=== PATIENT | female | born 1970 | race Caucasian/White ===

== ENCOUNTER 2018-05-18 09:59 | Emergency (ER) | payer MEDICARE, MEDICAID ==
[2018-05-18 11:03] VITALS: BP 128/69
--- NOTE | 2018-05-18 12:00 | UC ---
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 Manuscripts Archivist states several housemates have recently had similar symptoms. Denies fever, chills, ear pain, dysphagia, chest pain, shortness of breath, abdominal pain, nausea, vomiting, or diarrhea. - History of Current Complaint Chief Complaint: UCGeneralIllness Stated Complaint: SORE THROAT FEVER Time Seen by Provider: 05/18/18 11:35 Hx Obtained From: Patient Hx Last Menstrual Period: 05/15/2012 Pain Intensity: 5 - Allergy/Home Medications Allergies/Adverse Reactions: Allergies Allergy/AdvReac Type Severity Reaction Status Date / Time No Known Allergies Allergy Verified 05/18/18 11:03 PMH/Surg Hx/FS Hx/Imm Hx Endocrine History: Thyroid Disease Respiratory History: Asthma Neurological History: Seizures Psychological History: Anxiety, Other - Developmental delay - Surgical History Surgical History: Yes Surgery Procedure, Year, and Place: BREAST REDUCTION - Family History Known Family History: Positive: Non-Contributory - Social History Occupation: Disabled Lives: Shelter Alcohol Use: None Substance Use Type: None Smoking Status (MU): Never Smoked Tobacco - Immunization History Most Recent Tetanus Shot: UTD Review of Systems All Other Systems Reviewed And Are Negative: Yes Constitutional: Negative: Fever, Chills Skin: Negative: Rash Eyes: Negative: Drainage, Eye Redness ENT: Positive: Sore Throat, Nasal Discharge, Sinus Congestion. Negative: Ear Ache, Sinus Pain/Tenderness Respiratory: Positive: Cough. Negative: Shortness Of Breath Cardiovascular: Negative: Palpitations, Chest Pain Gastrointestinal: Negative: Abdominal Pain, Vomiting, Diarrhea, Nausea Genitourinary: Negative: Dysuria, Hematuria, Frequency, Urgency Musculoskeletal: Positive: Negative Neurological: Positive: Negative Is Patient Immunocompromised?: No Physical Exam - Summary Physical Exam Summary: GENERAL APPEARANCE: Well developed, well nourished, alert and cooperative, and appears to be in no acute distress. EYES: Conjunctiva clear. No drainage. Vision is grossly intact. EARS: External auditory canals and tympanic membranes clear, hearing grossly intact. NOSE: Mild nasal congestion. No nasal discharge. THROAT: Mild pharyngeal erythema with cobblestoning. No tonsilar inflammation, swelling, exudate, or lesions. Uvula midline. NECK: Neck supple, non-tender without lymphadenopathy. CARDIAC: Normal S1 and S2. No S3, S4 or murmurs. Rhythm is regular. There is no peripheral edema, cyanosis or pallor. Extremities are warm and well perfused. Capillary refill is less than 2 seconds. Peripheral pulses intact. LUNGS: Clear to auscultation without rales, rhonchi, wheezing or diminished breath sounds. Dry, non-productive cough. ABDOMEN: Positive bowel sounds. Soft, nondistended, nontender. No guarding or rebound. No masses or hepatosplenomegally. MUSKULOSKELETAL: ROM intact to all extremities. No joint erythema or tenderness. Normal muscular development. Normal gait. SKIN: Skin normal color, texture and turgor with no lesions or eruptions. 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 Manuscripts Archivist states several housemates have recently had similar symptoms. Denies fever, chills, ear pain, dysphagia, chest pain, shortness of breath, abdominal pain, nausea, vomiting, or diarrhea. Afebrile. Vital signs stable. Exam reveals an adult female in no acute distress with mild nasal congestion, mild pharyngeal erythema without tonsillar swelling or exudate, no cervical lymphadenopathy, clear bilateral breath sounds, dry nonproductive cough , and otherwise unremarkable exam. Recommending symptomatic treatment for a viral upper respiratory infection including Tessalon Perles 1 capsule every 8 hours as needed for cough. She is to follow-up with the primary care provider in one week if symptoms do not improve. Anticipatory guidance and warning symptoms are reviewed with farm or ranch animal caretaker. Verbalizes understanding and agrees with plan of care. - Differential Dx/Diagnosis Differential Diagnosis/HQI/PQRI: Bronchitis, Influenza, Pneumonia, Upper Respiratory Infection Provider Diagnosis: Viral URI with cough Discharge - Sign-Out/Discharge Documenting (check all that apply): Patient Departure All imaging exams completed and their final reports reviewed: No Studies - Discharge Plan Condition: Stable Disposition: HOME Prescriptions: Benzonatate CAP* [Tessalon 100 MG CAP*] 100 mg PO TID PRN #30 cap PRN Reason: Cough Patient Education Materials: Upper Respiratory Infection (ED) Referrals: Philippe Hart MD [Primary Care Provider] - 7 Days (If no improvement in symptoms. ) Additional Instructions: Your history and exam are consistent with a viral upper respiratory infection. Viral infections do not respond to antibiotics and are limited to the treatment of symptoms. Viral infections typically run their course in 7-10 days. Drink plenty of fluids to avoid dehydration especially if you are running any fever. Take over the counter acetaminophen (Tylenol) according to directions as needed for pain or fever. Use salt water gargles several times a day if you have a sore throat. Take Tessalon Perles 1 cap every 8 hours as needed for cough. Follow up with your primary care provider in 7 days if symptoms persist. Seek immediate medical attention in the emergency room if you have fever greater than 100.5 F despite taking acetaminophen or ibuprofen, have chest pain , difficulty breathing, are unable to swallow, or have any worsening of symptoms. - Billing Disposition and Condition Condition: STABLE Disposition: Home
== END 2018-05-18 12:17 | disposition home or self-care (01) ==
LOC: UCEAST 09:59
DX: J06.9 Acute upper respiratory infection, unspecified (principal); R05 Cough; J45.909 Unspecified asthma, uncomplicated
CPT/HCPCS: 99212; G0463

== ENCOUNTER 2018-05-21 15:50 | Emergency (ER) | payer MEDICARE, MEDICAID ==
--- OUTSIDE RECORDS SUMMARY | 2018-05-21 15:54 | XMS REPORT ---
:1970 Author Care Team Providers Name Role Phone Unavailable Unavailable Unavailable Problems This patient has no known problems. Allergies, Adverse Reactions, Alerts This patient has no known allergies or adverse reactions. Social History Smoking Status Start Date Stop Date Unknown if ever smoked Social History Observation Description Sex Female Medications This patient has no known medications. Vital Signs This patient has no known vital signs. Procedures This patient has no known procedures. Reason for Referral This patient has no known reason for referral. Chief Complaint and Reason for Visit This patient event has no chief complaint or reason for visit specified. Results This patient has no known results. Assessments This patient has no known assessments.
[2018-05-21 16:50] VITALS: BP 113/68
--- NOTE | 2018-05-21 17:08 | UC ---
Lower Extremity/Ankle HPI - HPI Summary HPI Summary: no known trauma----pain right lower leg with some swelling--no open areas, skin sores or rashes----tender both anterior and posterior lower leg - History of Current Complaint Chief Complaint: UCLowerExtremity Stated Complaint: R FOOT COMPLAINT Time Seen by Provider: 05/21/18 17:06 Hx Obtained From: Patient Hx Last Menstrual Period: last month ?: No Onset/Duration: Sudden Onset, Lasting Days - 1 Pain Intensity: 9 Pain Scale Used: 0-10 Numeric Aggravating Factor(s): Standing, Ambulation Alleviating Factor(s): Elevation, OTC Meds Able to Bear Weight: Yes - Allergies/Home Medications Allergies/Adverse Reactions: Allergies Allergy/AdvReac Type Severity Reaction Status Date / Time No Known Allergies Allergy Verified 05/18/18 11:03 PMH/Surg Hx/FS Hx/Imm Hx Previously Healthy: No Psychological History: Bipolar Disorder, Other Other Psychological History: development disabilities - Surgical History Surgical History: Yes Surgery Procedure, Year, and Place: BREAST REDUCTION - Family History Known Family History: Positive: Non-Contributory - Social History Occupation: Disabled Lives: [employer] Alcohol Use: None Substance Use Type: Prescribed Smoking Status (MU): Never Smoked Tobacco - Immunization History Most Recent Tetanus Shot: UTD Review of Systems All Other Systems Reviewed And Are Negative: Yes Constitutional: Positive: Negative Skin: Positive: Negative Eyes: Positive: Negative ENT: Positive: Negative Respiratory: Positive: Negative Cardiovascular: Positive: Negative Gastrointestinal: Positive: Negative Genitourinary: Positive: Negative Motor: Positive: Negative Neurovascular: Positive: Negative Musculoskeletal: Positive: Arthralgia - rle, Edema - rle, Myalgia - rle Neurological: Positive: Negative Psychological: Positive: Negative Is Patient Immunocompromised?: No Physical Exam Triage Information Reviewed: Yes Appearance: Well-Nourished, Ill-Appearing, Pain Distress - mild Vital Signs: Initial Vital Signs Temp 97.7 F 05/21/18 16:46 Pulse 67 05/21/18 16:46 Resp 18 05/21/18 16:46 BP 113/68 05/21/18 16:46 Pulse Ox 100 05/21/18 16:46 Vital Signs Reviewed: Yes Eye Exam: Normal Eyes: Positive: Conjunctiva Clear ENT Exam: Normal ENT: Positive: Normal ENT inspection, Hearing grossly normal, Pharynx normal. Negative: Trismus, Muffled voice, Hoarse voice Neck exam: Normal Neck: Positive: Supple, Nontender Respiratory Exam: Normal Respiratory: Positive: Chest non-tender, No respiratory distress, No accessory muscle use Cardiovascular Exam: Normal Cardiovascular: Positive: RRR, Pulses Normal, Brisk Capillary Refill Musculoskeletal Exam: Normal - lle Musculoskeletal: Positive: Strength Intact, ROM Intact, Edema @ - rle Neurological Exam: Normal Neurological: Positive: Alert, Muscle Tone Normal Psychological Exam: Normal Psychological: Positive: Normal Response To Family Skin Exam: Normal Diagnostics - Radiology No standard instances Radiology Interpretation Completed By: Radiologist - negative for fracture or misalignment Lower Extremity Course/Dx - Course Course Of Treatment: plan to go to hospital ed with care provider driving for further assessment of tender / swelling right lower calf - Differential Dx/Diagnosis Provider Diagnosis: Right calf pain Discharge - Sign-Out/Discharge Documenting (check all that apply): Patient Departure All imaging exams completed and their final reports reviewed: Yes - Discharge Plan Condition: Fair Disposition: HOME-RECOMMEND TO ED Patient Education Materials: Leg Pain (ED) Referrals: Philippe Hart MD [Primary Care Provider] - Additional Instructions: Please go directly to the emergency department for evaluation of swollen right lower leg - Billing Disposition and Condition Condition: FAIR Disposition: Home-Recommend to ED
== END 2018-05-21 18:05 | disposition home health service (06) ==
LOC: UCEAST 15:50
DX: M79.661 Pain in right lower leg (principal)
CPT/HCPCS: 99212; G0463

== ENCOUNTER 2018-05-21 18:30 | Emergency (ER) | payer MEDICARE, MEDICAID ==
--- NOTE | 2018-05-21 18:58 | ED ---
Lower Extremity - HPI Summary HPI Summary: This is a 48-year-old woman with a history of seizure disorder and some developmental delay who presents to ED having been referred from a local urgent care center for atraumatic pain in the right leg. The patient states she felt well yesterday when she went to bed, denies any injury yesterday, was not especially active yesterday, but then woke up this morning and noticed pain in the right lower leg the 21 knee. There was a little bit of swelling there and perhaps some bruising. Based on his history DVT was suspected and the patient was referred to us for ultrasound. The patient has no prior history of venous thromboembolic disease. She is not at particular risk for the VTE. The patient admits to some shortness of breath but this appears to be chronic and perhaps related to an ongoing anxiety problem. - History of Current Complaint Chief Complaint: EDExtremityLower Stated Complaint: PAIN IN RT LEG PER PT Time Seen by Provider: 05/21/18 18:48 Hx Last Menstrual Period: last month Pain Intensity: 9 - Allergies/Home Medications Allergies/Adverse Reactions: Allergies Allergy/AdvReac Type Severity Reaction Status Date / Time No Known Allergies Allergy Verified 05/18/18 11:03 PMH/Surg Hx/FS Hx/Imm Hx Endocrine/Hematology History: Reports: Hx Thyroid Disease Denies: Hx Diabetes, Hx Systemic Lupus Erythematosus Cardiovascular History: Denies: Hx Congestive Heart Failure, Hx Hypertension, Hx Pacemaker/ICD Respiratory History: Reports: Hx Asthma Denies: Hx Chronic Obstructive Pulmonary Disease (COPD) GI History: Denies: Hx Ulcer History: Denies: Hx Dialysis, Hx Renal Disease Musculoskeletal History: Denies: Hx Rheumatoid Arthritis Sensory History: Reports: Hx Contacts or Glasses Denies: Hx Hearing Aid Opthamlomology History: Reports: Hx Contacts or Glasses Neurological History: Reports: Hx Seizures, Other Neuro Impairments/Disorders - grand mal seizures, impulse control disorder, developmental delay Psychiatric History: Reports: Other Psychiatric Issues/Disorders - mentally challenged Denies: Hx Panic Disorder - Cancer History Hx Chemotherapy: No Hx Radiation Therapy: No - Surgical History Surgery Procedure, Year, and Place: BREAST REDUCTION Infectious Disease History: No Infectious Disease History: Denies: Hx Hepatitis, Hx Human Immunodeficiency Virus (HIV), Traveled Outside the [place] in Last 30 Days - Family History Known Family History: Positive: Non-Contributory - Social History Alcohol Use: None Substance Use Type: Reports: Prescribed Smoking Status (MU): Never Smoked Tobacco Review of Systems Constitutional: Negative Eyes: Negative ENT: Negative Negative: Palpitations, Chest Pain Negative: Shortness Of Breath, Cough All Other Systems Reviewed And Are Negative: Yes Physical Exam - Summary Physical Exam Summary: General: This is a well-developed, well- nourished white female lying on the stretcher in no apparent distress. The patient does not appear ill or toxic. Neck: No obvious swellings. Lungs: There are no signs of respiratory distress. Coronary: Peripheral perfusion is good. Abdomen: The abdomen appears normal and is nondistended. Genitourinary: Deferred Back: Good range of motion is observed. Extremities: Good range of motion was observed in all 4 extremities. Attention is directed to the right leg where there is some minimal anterior bruising. There is some tenderness about the entire leg particularly anteriorly. There is mild diffuse swelling. There is no erythema or lymphangitic streaking. The leg is not warm compared to the other Neurologic: The patient is awake and alert, speech is fluent and conversation is appropriate. Psychiatric: The patients affect is felt to be normal and appropriate. She does appear to be somewhat developmentally delayed. There is no sign of any hallucinations or delusions, or any other signs of psychosis. Vital Signs On Initial Exam: Initial Vitals Temp Pulse Resp BP Pulse Ox 36.4 C 65 20 131/77 99 05/21/18 18:32 05/21/18 18:32 05/21/18 18:32 05/21/18 18:32 05/21/18 18:32 Diagnostics - Vital Signs Vital Signs Temp Pulse Resp BP Pulse Ox 05/21/18 18:32 36.4 C 65 20 131/77 99 - Laboratory Lab Statement: Any lab studies that have been ordered have been reviewed, and results considered in the medical decision making process. Lower Extremity Course/Dx - Diagnoses Provider Diagnoses: Leg pain Discharge - Sign-Out/Discharge Documenting (check all that apply): Patient Departure Patient Received Moderate/Deep Sedation with Procedure: No - Discharge Plan Condition: Good Disposition: HOME Patient Education Materials: Leg Pain (ED) Referrals: Philippe Hart MD [Primary Care Provider] - Additional Instructions: The sonogram did not show any sign of a blood clot in the leg, so for now it does not look like anything serious is causing the pain. It does look like you may have bruised it. - Billing Disposition and Condition Condition: GOOD Disposition: Home
[2018-05-21 20:14] VITALS: BP 0/0
== END 2018-05-21 20:10 | disposition home or self-care (01) ==
LOC: ED 18:30
DX: M79.661 Pain in right lower leg (principal); G40.909 Epilepsy, unspecified, not intractable, without status epilepticus; R62.50 Unspecified lack of expected normal physiological development in childhood
CPT/HCPCS: 99281

== ENCOUNTER 2018-09-28 11:32 | Emergency (ER) | payer MEDICARE, MEDICAID ==
--- OUTSIDE RECORDS SUMMARY | 2018-09-28 12:18 | XMS REPORT | Continuity of Care Document ---
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 Yajaira Lemos NP Onset: 2014 partial seizures Taking medication Lelia Ramirez MD Onset: 11/30/2016 Mental retardation Lelia Ramirez MD Onset: 11/30/2016 Social History Type Date Description Comments Sex Unknown ETOH Use Never used alcohol Tobacco Use Start: Unknown Patient has never smoked Smoking Status Reviewed: 09/14/18 Patient has never smoked Allergies, Adverse Reactions, Alerts Description No Known Drug Allergies Medications Active Medications SIG Qnty Indications Ordering Date Provider Lamotrigine 1 tab by mouth 60tabs Bernard Power, 09/14/2018 100mg Tablets twice a day for MD a month then 50mg in am/ 100mg in pm for a month then 50mg twice a day for a month then 50mg at night for a m Depakote ER one at bedtime 30tabs Eliud Moya, 05/31/2012 250mg Tablets N.P. ER 24HR Lamotrigine 1 by mouth every 30tabs Eliud Moya, 05/12/2012 100mg Tablets morning N.P. Levetiracetam 3 tabs by mouth 210tabs Bernard Power, 12/15/2011 500mg every morning MD Tablets and 4 tabs every night at bedtime Depakote ER 2 tabs by mouth 60tabs Eliud Moya, 12/15/2011 500mg Tablets every night N.P. ER 24HR Ibu 1 tab by mouth Unknown 600mg Tablets as needed Pepto-Bismol as needed Unknown 262mg/15ML Suspension Heat Rub Use on back prn Unknown as directed Proventil HFA 2 puffs po q 4 1units Unknown 108(90Base) hours prn mcg/Act Aerosol Levoxyl take one tab po 90tabs Unknown 88mcg Tablets daily Triple Antibiotic apply to open QS Unknown areas bid prn 3.5-400-5000 Ointment Acetaminophen take 2 tabs po 120tabs Unknown 325mg q4hrs prn for Tablets minor pain or elevated temp Guiatuss ac 2 mL qid prn 200ml Unknown 100-10mg/5ML Syrup Listerine Swish 1 oz and Unknown Liquid spit bid Loratadine 1 po qd 30tabs Unknown 10mg Tablets Zoloft 1.5 tabs po qd 30tabs Unknown 100mg Tablets Clonazepam 1 po bid prn 60tabs Unknown 0.5mg Tablets History Medications Lamotrigine 1.5 tabs PO qpm 45tabs Yajaira Lemos NP 08/20/2014 - 100mg 08/20/2014 Tablets Lamotrigine 1 by mouth every 30tabs Eliud Moya, 08/20/2014 - 150mg evening N.P. 09/14/2018 Tablets Ibuprofen 1 tab po tid prn 30tabs Mikael Campuzano, 05/27/2012 - 800mg Tablets M.D. 09/13/2018 Lamotrigine take 2 1/2 75tabs Neyda Shearer, 05/12/2012 - 100mg tablets po qpm M.D. 05/27/2012 Tablets Lamotrigine 2 tabs in am and 135tabs Mikael Campuzano, 12/23/2011 - 100mg 2 1/2 at night M.D. 05/12/2012 Tablets Lamotrigine 2 tabs in am and 135tabs Mikael Campuzano, 12/08/2011 - 100mg 2 1/2 at night M.D. 12/23/2011 Tablets Pataday 1 drop in each Unknown - 0.2% Solution eye once daily 05/06/2016 prn Vital Signs Date Vital Result Comment 09/14/2018 9:43am Height 61 inches 5'1" Weight 204.50 lb Heart Rate 72 /min BP Systolic 102 mmHg BP Diastolic 68 mmHg BMI (Body Mass Index) 38.6 kg/m2 01/19/2018 12:03pm Height 61 inches 5'1" Weight 208.00 lb Heart Rate 80 /min BP Systolic Sitting 122 mmHg BP Diastolic Sitting 80 mmHg BMI (Body Mass Index) 39.3 kg/m2 11/30/2016 11:22am Height 61 inches 5'1" Weight 212.00 lb Heart Rate 76 /min BP Systolic 104 mmHg BP Diastolic 62 mmHg BMI (Body Mass Index) 40.1 kg/m2 06/01/2016 11:12am Height 61 inches 5'1" Weight 208.50 lb Heart Rate 62 /min BP Systolic Sitting 102 mmHg BP Diastolic Sitting 60 mmHg Respiratory Rate 17 /min BMI (Body Mass Index) 39.4 kg/m2 05/17/2015 10:54am Height 61 inches 5'1" Heart Rate 80 /min BP Systolic Sitting 118 mmHg BP Diastolic Sitting 84 mmHg Respiratory Rate 16 /min 08/15/2014 10:07am Height 61 inches 5'1" Heart Rate 72 /min BP Systolic Sitting 116 mmHg BP Diastolic Sitting 68 mmHg Respiratory Rate 16 /min 08/22/2013 11:13am Height 61 inches 5'1" Weight 214.00 lb Heart Rate 76 /min BP Systolic Sitting 112 mmHg BP Diastolic Sitting 68 mmHg Respiratory Rate 12 /min BMI (Body Mass Index) 40.4 kg/m2 05/31/2012 4:04pm Heart Rate 84 /min BP Systolic Sitting 112 mmHg BP Diastolic Sitting 80 mmHg Respiratory Rate 16 /min 05/27/2012 11:15am Heart Rate 85 /min BP Systolic Sitting 110 mmHg BP Diastolic Sitting 78 mmHg Respiratory Rate 16 /min 02/23/2012 9:07am Heart Rate 98 /min BP Systolic 136 mmHg BP Diastolic 88 mmHg Respiratory Rate 18 /min Results Test Date Facility Test Result H/L Range Note Laboratory test 01/24/2018 [facility] Valproic Acid 95.0 g/mL N 50-[address] (Depakene) [place] [address] [phone] Levetiracetam (Keppra) 22.5 g/mL 1 Lamotrigine (Lamictal) 12.6 g/mL 2.5 - 15.0 2 CMP Panel 01/24/2018 [facility] Sodium 141 mmol/L N 135-[address] [place] [address] [phone] Potassium 4.4 mmol/L N 3.5-5.0 Chloride 106 mmol/L N 101-111 Co2 Carbon Dioxide 24 mmol/L N 22-32 Anion Gap 11 mmol/L N 2-11 Glucose 95 mg/dL N 70-100 Blood Urea Nitrogen 28 mg/dL High 6-24 Creatinine 0.96 mg/dL High 0.51-0.95 BUN/Creatinine Ratio 29.2 High 8-20 Calcium 9.6 mg/dL N 8.6-10.3 Total Protein 7.6 g/dL N 6.4-8.9 Albumin 4.3 g/dL N 3.2-5.2 Globulin 3.3 g/dL N 2-4 Albumin/Globulin Ratio 1.3 N 1-3 Total Bilirubin 0.30 mg/dL N 0.2-1.0 Alkaline Phosphatase 88 U/L N 34-104 Alt 11 U/L N 7-52 Ast 16 U/L N 13-39 Egfr Non- 61.5 >60 Egfr 74.4 >60 3 CBC W/Auto 01/24/2018 [facility] White Blood 6.8 10^3/uL N 3.5 -10.[address] [place] [address] [phone] Red Blood Count 4.44 10^6/uL N 4.00-5.40 Hemoglobin 13.2 g/dL N 12.0-16.0 Hematocrit 40 % N 35-47 Mean Corpuscular Volume 90 fL N 80-97 Mean Corpuscular Hemoglobin 30 pg N 27-31 Mean Corpuscular HGB Conc 33 g/dL N 31-36 Red Cell Distribution Width 14 % N 10.5-15 Platelet Count 359 10^3/uL N 150-450 Mean Platelet Volume 8.6 fL N 7.4-10.4 Abs Neutrophils 4.6 10^3/uL N 1.5-7.7 Abs Lymphocytes 1.5 10^3/uL N 1.0-4.8 Abs Monocytes 0.6 10^3/uL N 0-0.8 Abs Eosinophils 0 10^3/uL N 0-0.6 Abs Basophils 0.1 10^3/uL N 0-0.2 Abs Nucleated RBC 0 10^3/uL Granulocyte % 68.0 % N 38-83 Lymphocyte % 21.7 % Low 25-47 Monocyte % 8.8 % High 0-7 Eosinophil % 0.6 % N 0-6 Basophil % 0.9 % N 0-2 Nucleated Red Blood Cells % 0.1 Laboratory test 02/18/2017 [facility] Levetiracetam 10.6 Abnormal [address] (Keppra) g/[place] [address] [phone] Valproic Acid (Depakene) 84.0 g/mL N 50-100 Lamotrigine (Lamictal) 10.6 g/mL 2.5 - 15.0 5 CMP Panel 12/21/2016 [facility] Sodium 136 mmol/L N 133-[address] [place] [address] [phone] Potassium 4.4 mmol/L N 3.5-5.0 Chloride 102 mmol/L N 101-111 Co2 Carbon Dioxide 25 mmol/L N 22-32 Anion Gap 9 mmol/L N 2-11 Glucose 101 mg/dL High 70-100 Blood Urea Nitrogen 19 mg/dL N 6-24 Creatinine 0.92 mg/dL N 0.51-0.95 BUN/Creatinine Ratio 20.7 High 8-20 Calcium 9.3 mg/dL N 8.6-10.3 Total Protein 6.9 g/dL N 6.4-8.9 Albumin 3.8 g/dL N 3.2-5.2 Globulin 3.1 g/dL N 2-4 Albumin/Globulin Ratio 1.2 N 1-3 Total Bilirubin 0.30 mg/dL N 0.2-1.0 Alkaline Phosphatase 57 U/L N 34-104 Alt 9 U/L N 7-52 Ast 12 U/L Low 13-39 Egfr Non- 65.2 N >60 Egfr 83.8 N >60 6 CBC W/Auto 12/21/2016 [facility] White Blood 6.4 10^3/uL N 3.5 -10.[address] [place] [address] [phone] Red Blood Count 4.15 10^6/uL N 4.0-5.4 Hemoglobin 12.5 g/dL N 12.0-16.0 Hematocrit 37 % N 35-47 Mean Corpuscular Volume 89 fL N 80-97 Mean Corpuscular Hemoglobin 30 pg N 27-31 Mean Corpuscular HGB Conc 34 g/dL N 31-36 Red Cell Distribution Width 14 % N 10.5-15 Platelet Count 360 10^3/uL N 150-450 Mean Platelet Volume 8 um3 N 7.4-10.4 Abs Neutrophils 4.0 10^3/uL N 1.5-7.7 Abs Lymphocytes 1.7 10^3/uL N 1.0-4.8 Abs Monocytes 0.5 10^3/uL N 0-0.8 Abs Eosinophils 0.1 10^3/uL N 0-0.6 Abs Basophils 0.1 10^3/uL N 0-0.2 Abs Nucleated RBC 0 10^3/uL N Granulocyte % 63.3 % N 38-83 Lymphocyte % 26.7 % N 25-47 Monocyte % 8.0 % N 1-9 Eosinophil % 1.1 % N 0-6 Basophil % 0.9 % N 0-2 Nucleated Red Blood Cells % 0 N CBC Auto Diff 06/12/2016 [facility] White Blood 6.5 10^3/uL N 3.5-10.[address] [place] [address] [phone] Red Blood Count 4.26 10^6/uL N 4.0-5.4 Hemoglobin 12.5 g/dL N 12.0-16.0 Hematocrit 38 % N 35-47 Mean Corpuscular Volume 90 fL N 80-97 Mean Corpuscular Hemoglobin 29 pg N 27-31 Mean Corpuscular HGB Conc 33 g/dL N 31-36 Red Cell Distribution Width 15 % N 10.5-15 Platelet Count 303 10^3/uL N 150-450 Mean Platelet Volume 9 um3 N 7.4-10.4 Abs Neutrophils 4.0 10^3/uL N 1.5-7.7 Abs Lymphocytes 1.8 10^3/uL N 1.0-4.8 Abs Monocytes 0.6 10^3/uL N 0-0.8 Abs Eosinophils 0 10^3/uL N 0-0.6 Abs Basophils 0 10^3/uL N 0-0.2 Abs Nucleated RBC 0 10^3/uL N Granulocyte % 61.6 % N 38-83 Lymphocyte % 28.0 % N 25-47 Monocyte % 9.5 % High 1-9 Eosinophil % 0.3 % N 0-6 Basophil % 0.6 % N 0-2 Nucleated Red Blood Cells % 0.1 N Laboratory test 01/02/2016 [facility] Valproic Acid 89.0 g/mL N 50-[address] (Depakene) [place] [address] [phone] Levetiracetam (Keppra) 17.0 g/mL N 7 Lamotrigine (Lamictal) 11.3 g/mL N 2.5 - 15.0 8 Comp Metabolic Panel 01/02/2016 [facility] Sodium 137 mmol/L N 133-[address] [place] [address] [phone] Potassium 4.4 mmol/L N 3.5-5.0 Chloride 103 mmol/L N 101-111 Co2 Carbon Dioxide 28 mmol/L N 22-32 Anion Gap 6 mmol/L N 2-11 Glucose 80 mg/dL N 70-100 Blood Urea Nitrogen 14 mg/dL N 6-24 Creatinine 0.82 mg/dL N 0.51-0.95 BUN/Creatinine Ratio 17.1 N 8-20 Calcium 9.1 mg/dL N 8.6-10.3 Total Protein 6.4 g/dL N 6.4-8.9 Albumin 3.4 g/dL N 3.2-5.2 Globulin 3.0 g/dL N 2-4 Albumin/Globulin Ratio 1.1 N 1-3 Total Bilirubin 0.30 mg/dL N 0.2-1.0 Alkaline Phosphatase 60 U/L N 34-104 Alt 9 U/L N 7-52 Ast 14 U/L N 13-39 Egfr Non- 74.7 N >60 Egfr 96.1 N >60 9 Comp Metabolic Panel 12/25/2015 [facility] Sodium 137 mmol/L N 133-[address] [place] [address] [phone] Potassium 4.0 mmol/L N 3.5-5.0 Chloride 104 mmol/L N 101-111 Co2 Carbon Dioxide 27 mmol/L N 22-32 Anion Gap 6 mmol/L N 2-11 Glucose 95 mg/dL N 70-100 Blood Urea Nitrogen 21 mg/dL N 6-24 Creatinine 0.95 mg/dL N 0.51-0.95 BUN/Creatinine Ratio 22.1 High 8-20 Calcium 9.2 mg/dL N 8.6-10.3 Total Protein 7.1 g/dL N 6.4-8.9 Albumin 3.9 g/dL N 3.2-5.2 Globulin 3.2 g/dL N 2-4 Albumin/Globulin Ratio 1.2 N 1-3 Total Bilirubin 0.30 mg/dL N 0.2-1.0 Alkaline Phosphatase 66 U/L N 34-104 Alt 9 U/L N 7-52 Ast 14 U/L N 13-39 Egfr Non- 63.1 N >60 Egfr 81.1 N >60 10 Laboratory test 12/25/2015 [facility] Valproic Acid 95.0 g/mL N 50-100 finding [address] (Depakene) [place] [address] [phone] Levetiracetam (Keppra) 41.6 g/mL N 11 Lamotrigine (Lamictal) 16.1 g/mL N 2.5 - 15.0 12 Laboratory test 05/17/2015 [facility] Valproic Acid 88.0 g/mL N 50-100 13 finding [address] (Depakene) [place] [address] [phone] CBC Auto Diff 05/17/2015 [facility] White Blood 6.1 10^3/uL N 3.5-10.[address] [place] [address] [phone] Red Blood Count 4.30 10^6/uL N 4.0-5.4 Hemoglobin 12.5 g/dL N 12.0-16.0 Hematocrit 38 % N 35-47 Mean Corpuscular Volume 89 fL N 80-97 Mean Corpuscular Hemoglobin 29 pg N 27-31 Mean Corpuscular HGB Conc 33 g/dL N 31-36 Red Cell Distribution Width 14 % N 10.5-15 Platelet Count 344 10^3/uL N 150-450 Mean Platelet Volume 8 um3 N 7.4-10.4 Abs Neutrophils 3.3 10^3/uL N 1.5-7.7 Abs Lymphocytes 2.1 10^3/uL N 1.0-4.8 Abs Monocytes 0.5 10^3/uL N 0-0.8 Abs Eosinophils 0.1 10^3/uL N 0-0.6 Abs Basophils 0.1 10^3/uL N 0-0.2 Abs Nucleated RBC 0 10^3/uL N Granulocyte % 54.7 % N 38-83 Lymphocyte % 34.6 % N 25-47 Monocyte % 8.9 % N 1-9 Eosinophil % 0.9 % N 0-6 Basophil % 0.9 % N 0-2 Nucleated Red Blood Cells % 0.1 N Comp Metabolic Panel 05/17/2015 [facility] Sodium 137 mmol/L N 133-[address] [place] [address] [phone] Potassium 4.5 mmol/L N 3.5-5.0 Chloride 101 mmol/L N 101-111 Co2 Carbon Dioxide 30 mmol/L N 22-32 Anion Gap 6 mmol/L N 2-11 Glucose 96 mg/dL N 70-100 Blood Urea Nitrogen 20 mg/dL N 6-24 Creatinine 0.95 mg/dL N 0.51-0.95 BUN/Creatinine Ratio 21.1 High 8-20 Calcium 9.3 mg/dL N 8.6-10.3 Total Protein 6.9 g/dL N 6.4-8.9 Albumin 3.8 g/dL N 3.2-5.2 Globulin 3.1 g/dL N 2-4 Albumin/Globulin Ratio 1.2 N 1-3 Total Bilirubin 0.30 mg/dL N 0.2-1.0 Alkaline Phosphatase 75 U/L N 34-104 Alt 10 U/L N 7-52 Ast 13 U/L N 13-39 Egfr Non- 63.1 N >60 Egfr 81.1 N >60 14 Laboratory test finding 08/31/2014 Valproic Acid (Depakene) 84.0 g/mL N 50-100 Levetiracetam (Keppra) 20.0 g/mL N 15 Lamotrigine (Lamictal) 12.1 g/mL N 2.5 - 15.0 16 Laboratory test 08/29/2013 [facility] Valproic Acid 97 g/mL N 50.0-100.[address] [place] [address] [phone] Lamotrigine 13.2 g/mL N 2.5 - 15.0 17 Laboratory test 09/01/2012 [facility] Valproic Acid 85.6 g/mL 50.0-100.0 [address] [place] [address] [phone] Lamotrigine 15.4 g/mL 2.5 - 15.0 19 Levetiracetam 9.7 g/mL Abnormal 20 Laboratory test 07/13/2012 [facility] Lamotrigine 18.8 g/mL 2.5 - [address] 15.0 [place] [address] [phone] Urinalysis 05/28/2012 [facility] Urine Color Rich[place] [address] [place] [address] [phone] Urine Appearance Cloudy Urine Specific [place] 1.027 1.010-1.030 Urine Esterase Negative Negative Urine Nitrate Positive Abnormal Negative Urine Urobilinogen Negative E.U./dL Negative Urine Protein Trace mg/dL Abnormal Negative Urine pH 6.0 5-9 Urine Blood Negative Negative Urine Ketones Trace mg/dL Abnormal Negative Urine Bilirubin Negative Negative Urine Glucose Negative mg/dL Negative Urine Microscopic 05/28/2012 [facility] Urine WBC 1+ (<10 None Seen [address] /hpf) [place] [address] [phone] Urine Mucus Present /lpf Absent Urine Epithelial Cells 2+ Squamous /hpf None Seen Bacteria Urine 3+ None Seen Laboratory test 05/28/2012 [facility] Activated 32.1 sec 22.18-37.[address] [place] [address] Thrombo Time [phone] CBC Auto Diff 05/28/2012 [facility] White Blood 5.8 4.8-10.[address] Count 10^3/[place] [address] [phone] Red Blood Count 3.65 10^6/uL Low 4.0-5.4 Hemoglobin 11.3 g/dL Low 12.0-16.0 Hematocrit 35 % 35-47 Mean Corpuscular Volume 94 fL 80-97 Mean Corpuscular Hemoglobin 31 pg 27-31 Mean Corpuscular HGB Conc 33 g/dL 31-36 Red Cell Distribution Width 15 % 10.5-15 Platelet Count 206 10^3/uL 150-450 Mean Platelet Volume 9 um3 7.4-10.4 Abs Neutrophils 3.3 10^3/uL 1.5-7.7 Abs Lymphocytes 1.7 10^3/uL 1.0-4.8 Abs Monocytes 0.7 10^3/uL 0-0.8 Abs Eosinophils 0.1 10^3/uL 0-0.6 Abs Basophils 0 10^3/uL 0-0.2 Abs Nucleated RBC 0 10^3/uL Granulocyte % 56.6 % 38-83 Lymphocyte % 29.9 % 25-47 Monocyte % 11.5 % High 1-9 Eosinophil % 1.4 % 0-6 Basophil % 0.6 % 0-2 Nucleated Red Blood Cells % 0.1 Comp Metabolic Panel 05/28/2012 [facility] Sodium 136 mmol/L 133-[address] [place] [address] [phone] Potassium 3.9 mmol/L 3.5-5.0 Chloride 104 mmol/L 101-111 Co2 Carbon Dioxide 25.0 mmol/L 22-32 Anion Gap 7.0 mmol/L 2-11 Glucose 91 mg/dL 70-100 Blood Urea Nitrogen 13 mg/dL 6-24 Creatinine 0.90 mg/dL 0.50-1.40 BUN/Creatinine Ratio 14.4 8-20 Calcium 8.8 mg/dL 8.1-9.9 Total Protein 6.1 g/dL Low 6.2-8.1 Albumin 3.2 g/dL Low 3.6-5.4 Globulin 2.9 g/dL 2-4 Albumin/Globulin Ratio 1.1 1-3 Total Bilirubin 0.6 mg/dL 0.4-1.5 Alkaline Phosphatase 78 U/L 30-110 Alt 13 U/L Low 14-54 Ast 19 U/L 12-42 Egfr Non- 68.0 >60 Egfr 87.5 >60 22 Laboratory test 05/28/2012 [facility] Valproic Acid 91.3 g/mL 50.0-100.0 23 finding [address] [place] [address] [phone] TSH (Thyroid Stimulating Horm) 5.87 miu/mL High 0.34-5.60 C Reactive Protein 1.3 mg/dL High Less than 0.5 1 REFERENCE VALUE 12.0 - 46.0 ADDITIONAL INFORMATION This test was developed and its performance characteristics determined by [facility] in a manner consistent with CLIA requirements. This test has not been cleared or approved by the U.S. Food and Drug Administration. Test Performed by: [facility] [place] [address] 2 ADDITIONAL INFORMATION This test was developed and its performance characteristics determined by [facility] in a manner consistent with CLIA requirements. This test has not been cleared or approved by the U.S. Food and Drug Administration. Test Performed by: [place] [address] 3 Because ethnic data is not always readily available, this report includes an eGFR for both -Americans and non- Americans. The National Kidney Disease Education Program (NKDEP) does not endorse the use of the MDRD equation for patients that are not between the ages of 18 and 70, are , have extremes of body size, muscle mass, or nutritional status, or are non- or non-. According to the National Kidney Foundation, irrespective of diagnosis, the stage of the disease is based on the level of kidney function: Stage Description GFR(mL/min/1.73 m(2)) 1 Kidney damage with normal or decreased GFR 90 2 Kidney damage with mild decrease in GFR 60-89 3 Moderate decrease in GFR 30-59 4 Severe decrease in GFR 15-29 5 Kidney failure <15 (or dialysis) 4 REFERENCE VALUE 12.0 - 46.0 ADDITIONAL INFORMATION This test was developed and its performance characteristics determined by [facility] in a manner consistent with CLIA requirements. This test has not been cleared or approved by the U.S. Food and Drug Administration. Test Performed by: [facility] - [address] [address] 5 ADDITIONAL INFORMATION This test was developed and its performance characteristics determined by [facility] in a manner consistent with CLIA requirements. This test has not been cleared or approved by the U.S. Food and Drug Administration. Test Performed by: [facility] [place] [address] 6 Because ethnic data is not always readily available, this report includes an eGFR for both -Americans and non- Americans. The National Kidney Disease Education Program (NKDEP) does not endorse the use of the MDRD equation for patients that are not between the ages of 18 and 70, are , have extremes of body size, muscle mass, or nutritional status, or are non- or non-. According to the National Kidney Foundation, irrespective of diagnosis, the stage of the disease is based on the level of kidney function: Stage Description GFR(mL/min/1.73 m(2)) 1 Kidney damage with normal or decreased GFR 90 2 Kidney damage with mild decrease in GFR 60-89 3 Moderate decrease in GFR 30-59 4 Severe decrease in GFR 15-29 5 Kidney failure <15 (or dialysis) 7 REFERENCE VALUE 12.0 - 46.0 ADDITIONAL INFORMATION This test was developed and its performance characteristics determined by [facility] in a manner consistent with CLIA requirements. This test has not been cleared or approved by the U.S. Food and Drug Administration. Test Performed by: [facility] [place] [address] [employer]ung Sewer: Yaakov Jimenez II, M.D., Ph.D. 8 ADDITIONAL INFORMATION This test was developed and its performance characteristics determined by [facility] in a manner consistent with CLIA requirements. This test has not been cleared or approved by the U.S. Food and Drug Administration. Test Performed by: [facility] [address] Bung Sewer: Yaakov Jimenez II, M.D., Ph.D. 9 Because ethnic data is not always readily available, this report includes an eGFR for both -Americans and non- Americans. The National Kidney Disease Education Program (NKDEP) does not endorse the use of the MDRD equation for patients that are not between the ages of 18 and 70, are , have extremes of body size, muscle mass, or nutritional status, or are non- or non-. According to the National Kidney Foundation, irrespective of diagnosis, the stage of the disease is based on the level of kidney function: Stage Description GFR(mL/min/1.73 m(2)) 1 Kidney damage with normal or decreased GFR 90 2 Kidney damage with mild decrease in GFR 60-89 3 Moderate decrease in GFR 30-59 4 Severe decrease in GFR 15-29 5 Kidney failure <15 (or dialysis) 10 Because ethnic data is not always readily available, this report includes an eGFR for both -Americans and non- Americans. The National Kidney Disease Education Program (NKDEP) does not endorse the use of the MDRD equation for patients that are not between the ages of 18 and 70, are , have extremes of body size, muscle mass, or nutritional status, or are non- or non-. According to the National Kidney Foundation, irrespective of diagnosis, the stage of the disease is based on the level of kidney function: Stage Description GFR(mL/min/1.73 m(2)) 1 Kidney damage with normal or decreased GFR 90 2 Kidney damage with mild decrease in GFR 60-89 3 Moderate decrease in GFR 30-59 4 Severe decrease in GFR 15-29 5 Kidney failure <15 (or dialysis) 11 REFERENCE VALUE 12.0 - 46.0 ADDITIONAL INFORMATION This test was developed and its performance characteristics determined by [facility] in a manner consistent with CLIA requirements. This test has not been cleared or approved by the U.S. Food and Drug Administration. Test Performed by: [facility] [address] Bung Sewer: Yaakov Jimenez II, M.D., Ph.D. 12 ADDITIONAL INFORMATION This test was developed and its performance characteristics determined by [facility] in a manner consistent with CLIA requirements. This test has not been cleared or approved by the U.S. Food and Drug Administration. Test Performed by: [facility] [place] [address] Bung Sewer: Yaakov Jimenez II, M.D., Ph.D. 13 Copy Result to: MARCUS CARDENAS ([id number]) 14 Because ethnic data is not always readily available, this report includes an eGFR for both -Americans and non- Americans. The National Kidney Disease Education Program (NKDEP) does not endorse the use of the MDRD equation for patients that are not between the ages of 18 and 70, are , have extremes of body size, muscle mass, or nutritional status, or are non- or non-. According to the National Kidney Foundation, irrespective of diagnosis, the stage of the disease is based on the level of kidney function: Stage Description GFR(mL/min/1.73 m(2)) 1 Kidney damage with normal or decreased GFR 90 2 Kidney damage with mild decrease in GFR 60-89 3 Moderate decrease in GFR 30-59 4 Severe decrease in GFR 15-29 5 Kidney failure <15 (or dialysis) 15 REFERENCE VALUE 12.0 - 46.0 Test Performed by: [place] [address] Bung Sewer: Yaakov Jimenez II, M.D., Ph.D. 16 Test Performed by: [place] [address] Bung Sewer: Yaakov Jimenez II, M.D., Ph.D. 17 Test Performed by: [place] [address] Bung Sewer: Chaitanya Oliva III, M.D. 18 The detection limit for Valproic Acid is 10.0 mcg/ml . Values less than 10.0 mcg/ml cannot be accurately measured. 19 Test Performed by: [place] [address] Bung Sewer: Chaitanya Oliva III, M.D. 20 -- REFERENCE VALUE -- 12.0 - 46.0 Test Performed by: [place] [address] Bung Sewer: Chaitanya Oliva III, M.D. 21 Test Performed by: [place] [address] Bung Sewer: Chaitanya Oliva III, M.D. 22 Because ethnic data is not always readily available, this report includes an eGFR for both -Americans and non- Americans. The National Kidney Disease Education Program (NKDEP) does not endorse the use of the MDRD equation for patients that are not between the ages of 18 and 70, are , have extremes of body size, muscle mass, or nutritional status, or are non- or non-. According to the National Kidney Foundation, irrespective of diagnosis, the stage of the disease is based on the level of kidney function: Stage Description GFR(mL/min/1.73 m(2)) 1 Kidney damage with normal or decreased GFR 90 2 Kidney damage with mild decrease in GFR 60-89 3 Moderate decrease in GFR 30-59 4 Severe decrease in GFR 15-29 5 Kidney failure <15 (or dialysis) 23 The detection limit for VALPROIC ACID is 10.0 mcg/ml . Values less than 10.0 mcg/ml cannot be accurately measured. Procedures Date Code Description Status 05/30/2012 20950 EEG Recording Awake & Asleep Completed 05/23/2012 94582 EEG Recording Awake & Drowsy Completed Encounters Type Date Location Provider Dx Diagnosis Office Visit 01/19/2018 [facility] Bernard Power, G40.219 Local-rel 11:45a symptc epi w cmplx part seiz, ntrct, w/o stat epi Office Visit 11/30/2016 [facility] Lelia Ramirez MD G40.219 Local-rel 11:00a symptc epi w cmplx part seiz, ntrct, w/o stat epi F79 Unspecified intellectual disabilities Z79.899 Other intermediate (current) drug therapy Office Visit 06/01/2016 11:00a [facility] Lelia Ramirez G40.219 Local-rel symptc [facility] MD hayward w cmplx part seiz, ntrct, w/o stat epi F79 Unspecified intellectual disabilities Z79.899 Other intermediate (current) drug therapy Office Visit 05/17/2015 11:00a [facility] Mikael S. F79 Unspecified [facility] Campuzano M.D. intellectual disabilities G40.209 Local-rel symptc epi w cmplx prt seiz,not ntrct,w/o stat epi Office Visit 08/15/2014 10:00a [facility] Yajaira 345.41 Local- Related [facility] TAMI Lemos Epilepsy W/Intractable Epilepsy Office Visit 08/22/2013 11:00a [facility] Flores Fuller 345.41 Local- Related [facility] Ava Campuzano M.D. W/Intractable Epilepsy 319 Unspecified Intellectual Disabilities Office Visit 11/09/2012 Ceci Fuller 345.41 Local-Related 11:30a Flores Campuzano M.D. Epilepsy [facility] W/Intractable Epilepsy 966.3 Poisoning By Anticonvulsants Other & Unspec 319 Unspecified Intellectual Disabilities Office Visit 07/29/2012 Ceci Fuller 345.41 Local-Related 8:30a [facility] Cem Campuzano [facility]ilepsy [facility] W/Intractable Epilepsy 781.3 Coordination Lack Of E936.3 Other & Unspec Anticonvulsants Adverse Effects 319 Unspecified Intellectual Disabilities Office Visit 06/28/2012 11:15a [facility] Flores Fuller 345.90 Epilepsy Unspec [facility] S[facility]ma Campuzano M.D. W/O Intractable 781.3 Coordination Lack Of E936.3 Other & Unspec Anticonvulsants Adverse Effects Office Visit 05/31/2012 4:00p [facility] Flores Fuller 781.3 Coordination Lack Services [facility] Campuzano M.D. Of E936.3 Other & Unspec Anticonvulsants Adverse Effects 345.90 Epilepsy Unspec W/O Intractable 319 Unspecified Intellectual Disabilities Office Visit 05/30/2012 10:13a [facility] Roman Valdovinos, 345.10 Epilepsy Assoc,krishna Priest Convulsive W/O Hospitalists Intractable 244.9 Hypothyroidism Other Unspec 493.10 Asthma Intrinsic Unspecified V15.88 History Of Fall Office Visit 05/29/2012 9:20a [facility] Neyda Shearer, 345.90 Epilepsy Unspec [facility] Cem W/O Intractable 319 Unspecified Intellectual Disabilities V15.88 History Of Fall Office Visit 05/28/2012 10:13a [facility] Roman Valdovinos 345.10 Epilepsy Assoc,krishna Priest Convulsive W/O Hospitalists Intractable 244.9 Hypothyroidism Other Unspec 493.10 Asthma Intrinsic Unspecified V15.88 History Of Fall Office Visit 05/27/2012 Ceci Fuller 345.41 Local-Related 11:15a Neurologic Cem Campuzano Epilepsy [facility] W/Intractable Epilepsy 379.56 Nystagmus Other Forms 319 Unspecified Intellectual Disabilities Office Visit 04/07/2012 [place] Mikael Fuller 345.41 Local-Related 1:00p [facility]rolog[facility] Serv Lilliana Campuzano M.D. [facility] W/Intractable Epilepsy 319 Unspecified Intellectual Disabilities Office Visit 03/11/2012 12:21p [facility] Roman Valdovinos, 338.11 [facility],krishna Rios.D. 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 Rosalee Fuller 338.11 [facility],pc Pedro, N.P. 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 [facility] W/Intractable Epilepsy Plan of Treatment Future Appointment(s):03/13/2019 9:45 am - Bernard Power MD at [facility]09/14/2018 - Bernard Power MDG40.219 Localization- related (focal) (partial) symptomatic epilepsyComments:Seizures relatively infrequent and may be able to go to just two anticonvulsants. Did not tolerate coming off the keppra years ago so will try slowly weaning the lamictal. Other seziure meds as is.Doblood work before next visitFollow up:6 MONTHS
[2018-09-28 12:42] VITALS: BP 137/65
--- NOTE | 2018-09-28 12:52 | UC ---
Lower Extremity/Ankle HPI - HPI Summary HPI Summary: 48-year-old female with history of developmental delay presents with imaging administrator with complaints of swelling and bruising to her right foot. The imaging administrator reports that patient had a suspected seizure on Wednesday evening as staff heard a loud crash in the patient's room and found her on the floor in what sounds like a postictal state. The next morning they did note some mild swelling and bruising to the top of the right foot near the base of the toes and think she may have injured the foot during the seizure. Card Cleaner states they are seeking care today because the swelling and bruising appears to be getting progressively worse. The patient has been bearing weight and walking on the foot since the injury although reports pain with this. Patient denies any numbness or tingling. - History of Current Complaint Chief Complaint: UCLowerExtremity Stated Complaint: FOOT INJURY Time Seen by Provider: 09/28/18 12:27 Hx Obtained From: Patient, Family/Card Cleaner Hx Last Menstrual Period: last month Pain Intensity: 10 - Allergies/Home Medications Allergies/Adverse Reactions: Allergies Allergy/AdvReac Type Severity Reaction Status Date / Time No Known Allergies Allergy Verified 09/28/18 12:42 Home Medications: Home Medications levETIRAcetam [Keppra] 1,500 mg PO QID 09/28/18 [History Confirmed 09/28/18] PMH/Surg Hx/FS Hx/Imm Hx Endocrine History: Hypothyroidism Respiratory History: Asthma Neurological History: Seizures - Surgical History Surgical History: None Surgery Procedure, Year, and Place: BREAST REDUCTION - Family History Known Family History: Positive: Non-Contributory - Social History Occupation: Disabled Lives: Intermediate Alcohol Use: None Substance Use Type: Prescribed Smoking Status (MU): Never Smoked Tobacco - Immunization History Most Recent Tetanus Shot: UTD Review of Systems All Other Systems Reviewed And Are Negative: Yes Constitutional: Positive: Negative Skin: Positive: Bruising Respiratory: Positive: Negative Cardiovascular: Positive: Negative Gastrointestinal: Positive: Negative Genitourinary: Positive: Negative Motor: Negative: Weakness Neurovascular: Negative: Decreased Sensation Musculoskeletal: Positive: Other: - See HPI Neurological: Positive: Negative Is Patient Immunocompromised?: No Physical Exam - Summary Physical Exam Summary: GENERAL APPEARANCE: Well developed, well nourished, alert and cooperative, and appears to be in no acute distress. CARDIAC: Normal S1 and S2. No S3, S4 or murmurs. Rhythm is regular. There is no peripheral edema, cyanosis or pallor. Extremities are warm and well perfused. Capillary refill is less than 2 seconds. Peripheral pulses intact. LUNGS: Clear to auscultation without rales, rhonchi, wheezing or diminished breath sounds. ABDOMEN: Positive bowel sounds. Soft, nondistended, nontender. No guarding or rebound. No masses or hepatosplenomegally. MUSKULOSKELETAL: Normal muscular development. EXTREMITIES: Mild edema and ecchymosis noted to the dorsal right foot at the base of the toes. Tenderness noted over the distal 2nd and 3rd metatarsals without gross deformity. Circulation and sensation intact. SKIN: Skin normal color, texture and turgor. Triage Information Reviewed: Yes Vital Signs: Initial Vital Signs Temp 97.7 F 09/28/18 12:36 Pulse 76 09/28/18 12:36 Resp 20 09/28/18 12:36 BP 137/65 09/28/18 12:36 Pulse Ox 99 09/28/18 12:36 Vital Signs Reviewed: Yes Diagnostics - Radiology No standard instances Radiology Interpretation Completed By: Radiologist Summary of Radiographic Findings: Patient Name: RADHA FERNANDEZ Medical Record#: [id number]. Ordering Physician: Harrison Julio NP Acct.#: [id number]. : 1970 Age: 48 Sex: F Location: [facility]. Exam Date: 1247 ADM Status: REG ER. Order Information: FOOT RIGHT 3+ VWS. Accession Number: [id number]. CPT: 54150. Indication: Right foot pain. Swelling. 3 views of the right foot demonstrates no fracture or dislocation. No other bone or joint abnormality is identified. IMPRESSION: No fracture of the right foot is noted. Lower Extremity Course/Dx - Course Course Of Treatment: 48-year-old female with history of developmental delay presents with imaging administrator with complaints of swelling and bruising to her right foot. The imaging administrator reports that patient had a suspected seizure on Wednesday evening as staff heard a loud crash in the patient's room and found her on the floor in what sounds like a postictal state. The next morning they did note some mild swelling and bruising to the top of the right foot near the base of the toes and think she may have injured the foot during the seizure. Card Cleaner states they are seeking care today because the swelling and bruising appears to be getting progressively worse. The patient has been bearing weight and walking on the foot since the injury although reports pain with this. Patient denies any numbness or tingling. Afebrile. Mildly elevated blood pressure otherwise vital signs stable. Patient had mild edema and ecchymosis noted to the dorsal right foot at the base of the toes. Tenderness noted over the distal 2nd and 3rd metatarsals without gross deformity. Circulation and sensation intact. X- ray showed no acute fracture. Recommending conservative treatment for a right foot contusion including [id number] analgesics and RICE. She is to follow -up with her primary care provider in 5-7 days if no improvement in symptoms. Anticipatory guidance and warning signs were reviewed with the imaging administrator. Verbalizes understanding and agrees with plan of care. - Differential Dx/Diagnosis Differential Diagnosis/HQI/PQRI: Contusion, Fracture (Closed), Sprain Provider Diagnosis: Contusion of right foot Discharge - Sign-Out/Discharge Documenting (check all that apply): Patient Departure All imaging exams completed and their final reports reviewed: Yes - Discharge Plan Condition: Stable Disposition: HOME Patient Education Materials: Foot Contusion (ED) Referrals: Philippe Hart MD [Primary Care Provider] - 5 Days Additional Instructions: The x-ray performed in the clinic today showed no evidence of a fracture. I suspect that you have a contusion (bruise) of the foot. Rest the foot as much as possible. Apply ice to the affected area for 15-20 minutes at least 4 times a day to help with the pain and swelling. Elevate the foot to help reduce swelling. Take ibuprofen (Advil, Motrin) according to directions as needed for pain. Follow up with your primary care provider in 5-7 days if symptoms do not improve. Seek immediate medical attention if you have severe pain not managed with pain medication, you are unable to walk or bear any weight, develop numbness or tingling in the foot or toes, or have any worsening of symptoms. - Billing Disposition and Condition Condition: STABLE Disposition: Home
== END 2018-09-28 13:45 | disposition home or self-care (01) ==
LOC: UCEAST 11:32
DX: S90.31XA Contusion of right foot, initial encounter (principal); W18.30XA Fall on same level, unspecified, initial encounter; Y92.019 Unspecified place in single-family (private) house as the place of occurrence of the external cause; E03.9 Hypothyroidism, unspecified; J45.909 Unspecified asthma, uncomplicated; G40.909 Epilepsy, unspecified, not intractable, without status epilepticus
CPT/HCPCS: 99211; G0463